=== PATIENT | female | born 1965 | race Caucasian/White ===

== ENCOUNTER 2017-06-03 00:15 | Emergency (ER) | payer OTHER, MEDICAID ==
[~2017-06-03] VITALS: Ht 170.2 cm; Wt 190.5 kg
[~2017-06-03 00:15] MED LIST: ACTEMRA162 MG/0.9 SQ; ALBUTEROL SULFAT4 MG PO; ALLOPURINOL 30300 M1 PO; AMBIEN 10 MG TA10 MG PO; AMILORIDE HCL-1 EACH; B-100 COMPLEX1 EAC1; B-122500 MC1 SL; CEFAZOLIN2 GM/100 M IV; CIMZIA PO; CINNAMON500 MG PO; COZAAR 25 MG TA25 M1 PO; COZAAR 25 MG TA25 MG; CRANBERRY TABL1 EACH PO; CRANBERRY500 MG PO; CRUTCH1 EACH MC; CYCLOBENZAPRINE10 MG; CYMBALTA30 MG PO; CYMBALTA60 MG PO; DESYREL100 MG; DHEA50 MG PO; DILTIAZEM ER120 M1 PO; DUONEB 2.5-0.5 M3 ML INH; ESTRACE0.5 MG PO; ESTRADIOL 1 MG T1 M1 PO; EVOXAC30 MG; FLONASE 0.05%50 MCG NASAL; FOLIC ACID 40400 MCG PO; FOLIC ACID1 MG PO; FUROSEMIDE 40 M40 M1 PO; GABAPENTIN PO; GLUCOPHAGE1000 MG PO; HUMALOG100 UNIT/1; HUMARA; HUMIRA40 MG/0.8 INJECTION; HUMULIN N100 UNIT/1 SC; HUMULIN N100 UNIT/1 SUBQ; HYDROCODON-ACE1 EAC5 PO; HYDROXYCHLOROQ200 M1 PO; INSULIN SYRING MC; IRON325 PO; JARDIANCE10 MG PO; K-DUR 20 MEQ T20 MEQ PO; K-DUR10 MEQ PO; LEVOTHYROXINE 0.1 MG PO; LEVOTHYROXINE0.05 MG; LEVOXYL88 MCG PO; LIDODERM 5%1 PATC1 TOP; Levothyroxine PO; MEDROLDOSEPACK PO; METHOTREXATE 22.5 M1 PO; MILK THISTLE; MOVANTIK25 MG PO; NABUMETONE 750750 M1 PO; NEURONTIN 300300 M1; NEURONTIN 300300 M1 PO; NITROSTAT0.4 MG SL; OMEPRAZOLE20 M2 PO; ONDANSETRON HCL4 M2 PO; ONE-A-DAY WOMENS PO; OXYCODONE HCL5 MG PO; PERCOCET 10-321 EACH PO; PILOCARPINE HC7.5 MG PO; POTASSIUM CHLO10 ME1; POTASSIUM CHLO10 ME1 PO; POTASSIUM CITR10 ME1 PO; POTASSIUM CITRATE PO; POTASSIUM20 PO; PREDNISONE 20 M20 MG PO; PREDNISONE 5 MG5 M1 PO; PROAIR HFA8.5 GM; PROAIR HFA8.5 GM INH; PROVERA2.5 MG PO; Potassium Citrate PO; REGLAN 10 MG TA10 MG PO; SILVADENE20 GM; SPIRONOLACTONE; SSD CREAM 1% 5050 GM TOP; TIZANIDINE HCL4 MG PO; TOPAMAX 25 MG T25 M1 PO; TRAZODONE; TRAZODONE HCL100 MG PO; Trazodone PO; UNICOMPLEX M TA1 TA1 PO; VANCO 1.251.25 GM/25 IVPB; VICODIN; VICTOZA0.6 MG/0.1 PO; VICTOZA0.6 MG/0.1 SUBQ; VITAMIN B-12500 MCG PO; VITAMIN D; VITAMIN D1000 UNI1 PO; VITAMIN D2000 UNIT PO; VITAMINC500 PO
[2017-06-03 00:23] VITALS: BP 125/72
[2017-06-03 05:32] LABS: ABSOLUTE BASOPHILS 0.1 thou/uL (0.0-0.2); ABSOLUTE EOSINOPHILS 0.1 thou/uL (0.0-0.7); ABSOLUTE LYMPHOCYTES 1.1 thou/uL (0.8-5.3); ABSOLUTE MONOCYTES 0.7 thou/uL (0.0-1.2); ABSOLUTE NEUTROPHILS 8.2 thou/uL (1.6-8.1); BASOPHILS 0.7 %; EOSINOPHILS 0.7 %; HEMATOCRIT 40.4 % (37.0-47.0); HEMOGLOBIN 13.1 gm/dL (12.0-15.0); LYMPHOCYTES 10.8 %; MCH 29.7 pg (26.0-34.0); MCHC 32.5 g/dL (28.0-37.0); MCV 91.4 fL (80.0-100.0); MPV 7.2 fl. (7.2-11.1); NUCLEATED RBCS 0 /100WBC; PLATELET COUNT* 259 thou/uL (150-400); POLYS 80.8 %; RBC 4.42 mil/uL (4.20-5.00); RDW-CV 16.9 % (10.5-14.5); WBC 10.2 thou/uL (4.0-11.0)
[2017-06-03 05:47] LABS: ANION GAP 104 mmol/L (7-16); BUN 19 mg/dL (7-18); CO2 33 mmol/L (21-32); CREATININE 1.3 mg/dL (0.6-1.3); SODIUM 141 mmol/L (136-145)
[2017-06-03 05:48] LABS: ALBUMIN 3.4 g/dL (3.4-5.0); ALKALINE PHOSPHATASE 64 U/L (46-116); CALCIUM 9.7 mg/dL (8.5-10.1); GLUCOSE 291 mg/dL (70-99); NT-PRO BRAIN NAT PEPTIDE 68 pg/mL (<300); SGOT 24 U/L (15-37); SGPT 32 U/L (30-65); TOTAL BILIRUBIN 7.8 mg/dL (<0.1-1.0); TOTAL PROTEIN 7.8 g/dL (6.4-8.2); TROPONIN-I LEVEL <0.06 ng/mL (<0.06)
[2017-06-03 05:58] LABS: URINE COLOR YELLOW
[2017-06-03 05:59] LABS: URINE CLARITY CLEAR; URINE GLUCOSE-RANDOM TRACE (Negative); URINE KETONES NEGATIVE (Negative); URINE PROTEIN NEGATIVE (Negative)
[2017-06-03 06:00] LABS: URINE BILIRUBIN NEGATIVE (Negative); URINE BLOOD NEGATIVE (Negative); URINE LEUKOCYTES-REFLEX NEGATIVE (Negative); URINE NITRITE-REFLEX NEGATIVE (Negative); URINE UROBILINOGEN 0.2 E.U./dl (0.2-1.0)
--- NOTE | 2017-06-03 10:48 | EKG ---
[place] [address] ELECTROCARDIOGRAM REPORT Name: DILIP WALKER Room: [facility]#: [id number] Admission: 06/03/17 Attend Phys: Discharge: Date of : 67 Report #: [id number] THIS REPORT FOR: //name// [facility] ED Test Date: 2017-06-03 Test Time: 00:21:37 Pat Name: DILIP WALKER Department: Room: Gender: F Boatwright: REAL Nelson : 1965 Requested By: Sherrill Calhoun Order Number: [id number] MD: Griffin Caba Measurements Intervals [place] Rate: 112 P: 22 [place]: 190 QRS: 5 QRSD: 83 T: 26 QT: 320 QTc: 437 Interpretive Statements Sinus tachycardia Anterior infarct, old Baseline wander in lead(s) V5 Compared to ECG 07/15/2016 12:43:07 Myocardial infarct finding now present Sinus rhythm no longer present Electronically Signed On 06-03-2017 10:48:39 CDT by Griffin Caba [email or web address] <ELECTRONICALLY SIGNED> By: Griffin Caba MD, [facility] 06/03/17 1048 0021 0021 Griffin Caba MD, FAC /EPI
[2017-10-21] MEDS ORDERED: OMEPRAZOLE40 MG PO (14:37)
[2017-10-21] MEDS ORDERED: ERYTHROMYCIN250 MG PO (14:38)
== END 2017-06-03 04:48 | disposition home or self-care (01) ==
LOC: M.ERS 00:15
PROVIDERS: Emergency Medicine
DX: R42 Dizziness and giddiness (principal); E11.9 Type 2 diabetes mellitus without complications; E03.9 Hypothyroidism, unspecified; I10 Essential (primary) hypertension; J44.9 Chronic obstructive pulmonary disease, unspecified

== ENCOUNTER 2017-06-09 16:31 | Inpatient (IN) | payer OTHER, MEDICAID ==
[~2017-06-09] VITALS: Ht 170.2 cm; Wt 192.5 kg
[2017-06-09 16:39] VITALS: BP 160/65
--- NOTE | 2017-06-09 16:48 | NUR ---
PT GAVE LIST OF MEDS AND HAS MARKED THE MEDS DR. CONNOLLY WOULD LIKE HER TO STOP THEY INCLUDE: CYMBALTA, DILTIAZEMHCL, FURSEMIDE, LOSARTAN POTASSIUM BUT TOOK THIS MORNING
[2017-06-09] MEDS ORDERED: ACTEMRA162 MG/0.9 INJECTION (16:52)
[2017-06-09] MEDS ORDERED: NEURONTIN 300300 M1 PO (16:54)
[2017-06-09] MEDS ORDERED: REGLAN 10 MG TA10 MG PO (16:57)
[2017-06-09] MEDS ORDERED: NOVOLIN N100 UNIT/1 INJECTION (16:58)
[2017-06-09] MEDS ORDERED: VITAMIN D1000 UNI1 PO (16:59)
[2017-06-09] MEDS ORDERED: VICTOZA0.6 MG/0.1 SUBQ (16:59)
[2017-06-09] MEDS ORDERED: NOVOLIN R100 UNIT/1 INJECTION (16:59)
[2017-06-09] MEDS ORDERED: LEVOXYL175 MCG PO (17:01)
[2017-06-09 17:43] LABS: ABSOLUTE EOSINOPHILS 0.1 thou/uL (0.0-0.7); ABSOLUTE LYMPHOCYTES 1.2 thou/uL (0.8-5.3); ABSOLUTE MONOCYTES 0.6 thou/uL (0.0-1.2); ABSOLUTE NEUTROPHILS 9.1 thou/uL (1.6-8.1); BASOPHILS 0.4 %; EOSINOPHILS 0.9 %; HEMATOCRIT 40.6 % (37.0-47.0); HEMOGLOBIN 13.2 gm/dL (12.0-15.0); LYMPHOCYTES 10.7 %; MCH 29.6 pg (26.0-34.0); MCHC 32.5 g/dL (28.0-37.0); MCV 90.8 fL (80.0-100.0); MONOCYTES 5.3 %; MPV 7.4 fl. (7.2-11.1); NUCLEATED RBCS 0 /100WBC; PLATELET COUNT* 243 thou/uL (150-400); POLYS 82.7 %; RBC 4.47 mil/uL (4.20-5.00); RDW-CV 16.1 % (10.5-14.5); URINE BILIRUBIN NEGATIVE (Negative); URINE BLOOD NEGATIVE (Negative); URINE CLARITY CLEAR; URINE COLOR YELLOW; URINE GLUCOSE-RANDOM NEGATIVE (Negative); URINE KETONES NEGATIVE (Negative); URINE LEUKOCYTES-REFLEX NEGATIVE (Negative); URINE NITRITE-REFLEX NEGATIVE (Negative); URINE PROTEIN NEGATIVE (Negative); URINE SPECIFIC GRAVITY 1.015 (1.005-1.030); URINE UROBILINOGEN 0.2 E.U./dl (0.2-1.0)
[2017-06-09 17:45] LABS: CALCIUM 9.6 mg/dL (8.5-10.1); CREATININE 1.5 mg/dL (0.6-1.3); POTASSIUM 3.3 mmol/L (3.5-5.1)
[2017-06-09 17:50] LABS: ALBUMIN 3.5 g/dL (3.4-5.0); TOTAL BILIRUBIN 0.5 mg/dL (<0.1-1.0)
[2017-06-09 18:06] LABS: BE 1.7 mmol/L (-2 to +3); HCO3 25.1 mmol/L (22.0-26.0); PCO2 35.9 mmHg (35.0-45.0); PO2 76.9 mmHg (75.0-100.0); pH 7.463 (7.340-7.450)
[2017-06-09 20:00] VITALS: BP 113/42
[2017-06-09 20:30] VITALS: BP 113/42; BP 125/77
[2017-06-09] MEDS ORDERED: METHOTREXATE 22.5 MG PO (21:13)
[2017-06-09 23:00] VITALS: BP 113/55
[2017-06-09 23:03] VITALS: BP 130/85
[2017-06-09 23:06] VITALS: BP 125/89
[2017-06-10 03:15] VITALS: BP 139/77
--- NOTE | 2017-06-10 04:51 | NUR ---
RECEIVED REPORT FROM BALDO CHAVEZ AT 2019. PT ARRIVED TO UNIT AT 2130. PT PLACED ON TELE MONITOR, TRACING SINUS TACHY/SINUS RHYTHM 90'S -100'S THIS SHIFT. PT C/O FEELING DIZZY AND LIGHT HEADED WHEN CHANGING POSITIONS FROM LAYING SUPINE TO SITTING AND SITTING TO STANDING. FALL PRECAUTIONS IN PLACE. HOURLY ROUNDING COMPLETED. PER PATIENT, DR. CONNOLLY INDICATED PATIENT DO NOT TAKE CYMBALTA, DILTIAZEM, LASIX, AND LOSARTAN. NEUROLOGY CONSULT IN AM. CALL LIGHT WITHIN REACH.
[2017-06-10 08:00] VITALS: BP 108/59
[2017-06-10 12:00] VITALS: BP 94/52
--- NOTE | 2017-06-10 12:01 | NUR ---
MET WITH PT TO DISCUSS HOME SITUATION/DC PLANNING. PT KNOWN TO CM FROM PREVIOUS HOSPITAL STAYS. PT LIVES WITH SPOUSE WHO HAS M.S. PT USES MOTORIZED W/C, WALKER, SHOWER BENCH AND CPAP. SHE HAS HAD HH WITH [facility] AND DONE IV ANTIBX AT HOME THRU [facility] IN PAST. PT STATES SHE HAS HAD PROBLEMS WITH DIZZINESS AND FALLS FOR ABOUT A MONTH. SHE FOLLOWS WITH DR KATHY YANCEY IN [place]. PT PL[place] TO RETURN [place] AT [place]. UNSURE IF SHE WILL NEED HH. CM TO FOLLOW
--- NOTE | 2017-06-10 13:47 | 2DMMODE ---
[place] [address] 2 D/M-MODE ECHOCARDIOGRAM Name: DILIP WALKER Room: [address] IN [facility]#: [id number] Admission: 06/09/17 Attend Phys: Chaka Landry, Discharge: Date of : 67 Date of Service: 06/10/17 1347 Report #: [id number] THIS REPORT FOR: //name// APPROVED REPORT Study performed: 06/10/2017 10:35:59 EXAM: Comprehensive 2D, Doppler, and color-flow Echocardiogram Patient Location: In-Patient Room #: [facility] Status: routine BSA: 2.79 HR: 91 bpm BP: 108/59 mmHg Rhythm: NSR Other Information Technically limited study due to body habitus. Indications Arrhythmia Echo Enhancing Agent Indication: Endocardial border delineation Agent(s) / Amount(s) Used: Optison 3 cc 2D Dimensions LVEF(%): 61.99 (>50%) IVSd: 11.76 (7-11mm) LVOT Diam: 23.20 (18-24mm) LVDd: 52.60 mm PWd: 12.62 (7-11mm) Ascending Ao: 32.77 (22-36mm) LVDs: 34.91 (25-40mm) Aortic Root: 35.25 mm Parkinson's LVEF: 61.99 % Volumes Left Atrial Volume (Systole) LA ESV Index: 20.90 mL/m2 Aortic Valve AoV Peak Tirso.: 1.59 m/s AO Peak Gr.: 10.10 mmHg LVOT Max P.76 mmHg AO Mean Gr.: 5.28 mmHg LVOT Mean P.08 mmHg LVOT Max V: 1.30 m/[place] [address] 2 D/M-MODE ECHOCARDIOGRAM Name: DILIP WALKER Room: [address] IN .R.#: [id number] Admission: 06/09/17 Attend Phys: Chaka Landry, Discharge: Date of : 67 Date of Service: 06/10/17 1347 Report #: [id number] AO V2 VTI: 24.39 cm LVOT Mean V: 0.79 m/s NILTON (VTI): 3.91 cm2 LVOT V1 VTI: 22.59 cm Mitral Valve E/A Ratio: 1.14 MV Decel. Time: 207.75 ms MV E Max Tirso.: 0.82 m/s MV PHT: 60.25 ms MVA (PHT): 3.65 cm2 TDI E/Lateral E': 6.83 E/Medial E': 6.83 Medial E' Tirso.: 0.12 m/s Lateral E' Tirso.: 0.12 m/s Pulmonary Valve PV Peak Tirso.: 1.20 m/s PV Peak Gr.: 5.80 mmHg Left Ventricle The left ventricle is normal size. There is normal LV segmental wall motion. There is normal left ventricular wall thickness. Left ventricular systolic function is normal. The left ventricular ejection fraction is within the normal range. LVEF is 60%. The left ventricular diastolic function is normal. Right Ventricle The right ventricle is normal size. The right ventricular systolic function is normal. Atria The left atrium size is normal. The right atrium size is normal. Aortic Valve The aortic valve is normal in structure. No aortic regurgitation is present. There is no aortic valvular stenosis. Mitral Valve The mitral valve is normal in structure. Trace mitral regurgitation. No evidence of mitral valve stenosis. Tricuspid Valve The tricuspid valve is normal in structure. Unable to assess PA pressure. Trace tricuspid regurgitation[place] [address] 2 D/M-MODE ECHOCARDIOGRAM Name: DILIP WALKER Room: [address] IN [facility]#: [id number] Admission: 06/09/17 Attend Phys: Chaka Landry, Discharge: Date of : 67 Date of Service: 06/10/17 1347 Report #: [id number] The pulmonary valve is normal in structure. There is no pulmonic valvular regurgitation. Great Vessels The aortic root is normal in size. IVC is normal in size and collapses with >50% inspiration Pericardium There is no pericardial effusion. <Conclusion> The left ventricle is normal size. There is normal left ventricular wall thickness. Left ventricular systolic function is normal. The left ventricular ejection fraction is within the normal range. LVEF is 60%. The left ventricular diastolic function is normal. The right ventricle is normal size. The left atrium size is normal. The aortic valve is normal in structure. The mitral valve is normal in structure. The tricuspid valve is normal in structure. IVC is normal in size and collapses with >50% inspiration There is no pericardial effusion. There is normal LV segmental wall motion. <ELECTRONICALLY SIGNED> By: Emiliano Alejandra MD, FACC 06/10/17 1347 46 46 Emiliano Alejandra MD, FACC /INF
--- NOTE | 2017-06-10 14:16 | NUR ---
Nutrition: Pt seen for BMI >40. Pt refused education/nutrition info. She stated she has been on a "diabetic diet" since she was 11 and she doesn't need any info. She is on insulin. She stated her average BG is 149. Today, 166 BG, alb 3.5. Eating CHO controlled diet. No nutrition interventions needed at this time. Mild risk.
[2017-06-10 14:18] VITALS: BP 94/52
--- NOTE | 2017-06-10 15:13 | EKG ---
[place] [address] ELECTROCARDIOGRAM REPORT Name: DILIP WALKER Room: [address] ADM IN M.R.#: [id number] Admission: 06/09/17 Attend Phys: Chaka Landry MD Discharge: Date of : 67 Report #: [id number] THIS REPORT FOR: //name// [facility] ED Test Date: 2017-06-09 Test Time: 16:44:48 Pat Name: DILIP WALKER Department: Room: [facility] Gender: F [employer] Fabricator: UNKNOWN : 1965 Requested By: Audrey Domingo Order Number: [id number] MD: Phillip Conroy Measurements Intervals [place] Rate: 108 P: 41 ME: 168 QRS: -14 QRSD: 102 T: 56 QT: 342 QTc: 459 Interpretive Statements Sinus tachycardia Atrial premature complex Delayed R-wave progression Compared to ECG 06/03/2017 00:21:37 Atrial premature complex(es) now present Electronically Signed On 06-10-2017 15:13:31 CDT by Phillip Conroy [email or web address] <ELECTRONICALLY SIGNED> By: Phillip Conroy MD, FACC 06/10/17 1513 1644 1644 Phillip Conroy MD, FAC /EPI
--- NOTE | 2017-06-10 16:22 | NUR ---
ASSUMED CARE OF PATIENT THIS AM AT 0730. PATIENT IS ALERT AND ORIENTED X 4. SHE C/O INTERMITTENT GENERALIZED PAIN TODAY. SHE SAID THAT HER PAIN NEVER GOES ALL THE WAY AWAY. PATIENT IS UP TO THE CHAIR AND TO THE BSC WITH STANDBY ASSIST. PATIENT C/O CONTINUED DIZZINESS. ORTHOSTATICS MONITORED. NO DROP IN BP NOTED, BUT PATIENT'S HR INCREASES WITH SITTING AND STANDING. TELE SHOWS SR TO ST. PATIENT WAS AGITATED THIS AFTERNOON ABOUT HER SALINE LOCK. PATIENT DEMANDED THE IV BE REMOVED AND REFUSES TO HAVE IT RESTARTED AT THIS TIME. PATIENT INSTRUCTED ON THE DANGERS OF NOT HAVING A IV ACCESS. PATIENT IS TAKING HER DIET WELL. NO C/O NAUSEA. ECHO COMPLETED AT THE BEDSIDE. PATIENT TAKEN TO RADIOLOGY PER W/C FOR A MRI. WILL CONTINUE TO MONITOR PATIENT COMFORT AND SAFETY.
[2017-06-10 17:06] VITALS: BP 101/57
[2017-06-10 20:00] VITALS: BP 107/54
[2017-06-11] VITALS (8 sets, daily range): BP systolic 100–158; BP diastolic 45–98
--- NOTE | 2017-06-11 04:18 | NUR ---
Patient rested in bed. No acute changes. Patient did not show sings of distress. Patient hr showed sinus 70's-80's. Fall precautions in places, hourly rounding observered, call light within reach. Patient refused IV, patient is npo after midnight for cardiology consult.
--- NOTE | 2017-06-11 09:08 | NUR ---
ASSUMED CARE OF PT AROUND 0730 THIS AM. REFER TO ASSESSMENT. PT REPORTS THAT SHE IS NOT DIZZY THIS MORNING, BUT IT USUALLY HAPPENS WHEN SHE GETS UP OOB AND MOVING AROUND. NO OTHER CONCERNS AT THIS TIME. CLWR. WCTM.
--- NOTE | 2017-06-11 16:17 | NUR ---
PT SOMEWHAT PROGRESSING TOWARDS GOALS. VSS THIS SHIFT. PT C/O DIZZINESS WHEN MOVING AROUND THIS SHIFT. CONTINUES WITH NO IV. CARDIOLOGY CONSULTED, UNABLE TO DO STRESS TEST, AND STATES UNABLE TO CONSENT FOR PT TO HAVE EGD BY GI AT THIS TIME D/T INABILITY TO PERFORM CARDIAC TESTS. PT TOLERATING DIET. TELE SR. NO OTHER CONCERNS AT THIS TIME. CLWR. WCTM.
--- NOTE | 2017-06-11 17:44 | NUR ---
PT WAS 97% WITH 65 HR ON ROOM AIR
--- NOTE | 2017-06-11 18:22 | NUR ---
ORTHOSTATS POSITIVE THIS SHIFT
[2017-06-12 00:05] VITALS: BP 136/80
[2017-06-12 04:06] VITALS: BP 112/58
--- NOTE | 2017-06-12 04:12 | NUR ---
ASSUMED PT CARE AT 1930. NURSING ASSESSMENT COMPLETED AT START OF SHIFT. PT VOICED NO CONCERNS. DENIES PAIN. 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
[2017-06-12 08:00] VITALS: BP 114/56
--- NOTE | 2017-06-12 10:05 | NUR ---
ASSUMED PT CARE AT 0730, FULL ASSESMENT DONE CHARTED. PT A/O X4, UP TO CHAIR FOR BREAKFAST, DENIES PAIN, DENIES DIZZYNESS. VSS, SR ON THE MONITOR. PT WANTS TO KNOW IF CARDIOLOGY WILL CLEAR HER FOR EGD. DR CRUZ SPOKE TO PT, WANTS HER TO HAVE STRESS TEST OUT PT AT [facility] PRIOR TO EGD. PT CAN DC HOME TODAY. PT USES CALL LIGHT APPROPRIALTY. FALL PRECATUIONS IN PLACE. WILL CONTINUE WITH PLAN OF CARE.
[2017-06-12 11:21] VITALS: BP 94/52
--- NOTE | 2017-06-12 19:10 | CON ---
[address] [address] CONSULTATION Name: AARONDILIP Room: [address] IN M.R.#: [id number] Admission: 06/09/17 Attend Phys: Chaka Landry MD Discharge: 06/12/17 Date of : 67 Report #: [id number] THIS REPORT FOR: //name// CC: Chaka Young DATE OF SERVICE: 06/10/2017 HISTORY OF PRESENT ILLNESS: This is a 51-year-old female patient who was evaluated by me because of dizziness. Neurological consultation was requested to evaluate the patient for any neurological etiology for the patient's dizziness. The patient indicates that typically her dizziness occurred when she stands up. She is having a postural hypotension. Her blood pressure has been low. They have discontinued multiple medications and she is not certain if she is feeling any better. She passes out, but does not have any associated tonic-clonic activity. It started spontaneously without any trauma. REVIEW OF SYSTEMS: Indicates multiple falls. This is probably because of hypotension. She has a diabetic neuropathy. She has chronic pain in both knees. She has a history of orthostatic hypotension. She has a history of gastroparesis, morbid obesity. 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 She has a history of sleep apnea. She wears a CPAP. She has chronic kidney disease. She is not having any eye, ENT symptoms. She does have a history of hypothyroidism. She is on multiple medications including gabapentin and topiramate. A lot of them have been discontinued for the time being. I carried out the 14-point review of systems and rest of the 14-point review of system was noncontributory. She is not complaining of any new musculoskeletal, constitutional, dermatological, hematological, throat, allergic symptoms. She is a diabetic. PAST MEDICAL HISTORY: Negative for any stroke. FAMILY HISTORY: Negative for any early age stroke. SOCIAL HISTORY: She does not smoke or drink any alcohol. PHYSICAL EXAMINATION: Indicate that this patient is alert, responsive. Her speech, concentration, fund of knowledge and memory is at her baseline. Cranial nerve examination 2-12 looks unremarkable. I could not look at the patient's fundus. She does appear to be weak in all 4 extremities, but I suspect that may be her baseline. She had amputations on the right toes. She does have decreased pinprick in the legs. Her reflexes are absent in the lower extremities. Tone looks unremarkable on both sides. She has no meningeal sign. There is no cerebellar sign. She is morbidly obese individual who does not [place] [address] CONSULTATION Name: DILIP WALKER Room: [address] IN M.R.#: [id number] Admission: 06/09/17 Attend Phys: Chaka Landry MD Discharge: 06/12/17 Date of : 67 Report #: [id number] eyes, ears and face. She is reasonably well-developed. Her pulses are difficult to feel in the lower extremities. She has no edema, cyanosis or jaundice. Cardiac examinations appear noncontributory. No respiratory difficulty or rhonchi was noticed. Blood pressure was 94/52, respirations 18, pulse is 86, temperature is 98.3. LABORATORY DATA: She did have a carotid Doppler done, which showed no significant stenosis. She had a head CT scan, which was mostly unremarkable. Her white count was 11.0, her blood sugar was 213. IMPRESSION: I do not believe that there is any neurological etiology for the patient's dizziness. I believe dizziness may be because of some postural hypotension or any non-neurological etiology. Because of multiple vascular risk factors, I will go ahead and do an MRI in this patient to make sure there is no etiology there. If that is also unremarkable, I will suggest waiting and see how she does with correction of her postural hypotension and then decide about further management after that. Thank you very much for this referral and we will follow this patient along with you. <ELECTRONICALLY SIGNED> By: Tanner Guzman MD 06/12/171909 1528 19Tanner Guzman MD /nt
--- NOTE | 2017-06-19 15:14 | CON ---
[address] [address] CONSULTATION Name: DILIP WALKER Room: [address] IN M.R.#: [id number] Admission: 06/09/17 Attend Phys: Chaka Landry MD Discharge: 06/12/17 Date of : 67 Report #: [id number] THIS REPORT FOR: //name// CC: Chaka Young DATE OF SERVICE: 06/11/2017 ADDENDUM REFERRING PHYSICIAN: Dr. Chaka Landry. PRIMARY CARE PHYSICIAN: Dr. Jen Young. I have seen and examined the patient and I agree with the plans that have been outlined by our nurse practitioner, Krys Mazariegos. Because of the patient issues with hypotension, chest discomfort and chest pain, we need to await the results of her cardiovascular evaluation before proceeding with any endoscopic studies. We will await for Cardiology to okay her to undergo upper endoscopy and I agree that she will need to have this done as an inpatient as it will not be able to be done in an [facility] secondary to her BMI. With regards to her constipation, and I agree that we could try on some Relistor and see how things go with regards to the same. We will await Cardiology's okay to proceed with the same. <ELECTRONICALLY SIGNED> By: Paul Catalan DO 06/19/17 1514 0849 1344Paul Catalan DO /shavon
--- NOTE | 2017-06-19 15:14 | CON ---
[facility] [address] [place] [address] CONSULTATION Name: AARONDILIP PALACIOS Room: [address] IN M.R.#: [id number] Admission: 06/09/17 Attend Phys: Chaka Landry MD Discharge: 06/12/17 Date of : 67 Report #: [id number] THIS REPORT FOR: //name// CC: Chaka Young MD DICTATED BY: Krys Mazariegos [facility] DATE OF SERVICE: 06/11/2017 PRIMARY CARE PHYSICIAN: Jen Young M.D. Please note at the time of this dictation, the patient was seen and physically examined by myself. REASON FOR CONSULTATION: Dysphagia. 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 The patient had been having intermittent episodes of dizziness for the past month and it was worsening on the day that she was seen by Cardiology. She was noted to be hypotensive and had dizziness occurring with position changes from sitting to standing. She is waiting to have a stress test done today. Neurology has seen her and workup is negative and does not feel that this is necessary. The patient is needing an EGD for her dysphagia, which she states she has been having ongoing since March. She states this about 3 times a week, but it is getting increasing in frequency as well as mainly with breads and meats. She has not noticed with liquids, however, sometimes with pills. The patient had an EGD back in 2008 along with a colonoscopy for her iron-deficiency anemia. At that time, everything was normal and she was noted to have a small hiatal hernia. The patient does take chronic opioids for her rheumatoid arthritis and has issues with chronic constipation, which if she has not gone every other day, she loads up on laxatives to allow her to go. She has not tried anything else. She states many years ago, she was tried on a medication for opioid-induced constipation and her insurance would not pay for it, but she does not recall what that was for. ALLERGIES: TAPE and BEE STINGS. MEDICATIONS: From home include Relafen, ProAir, Topamax, tizanidine, Plaquenil, Neurontin, oxycodone, DHEA, Flonase, DuoNeb, cranberry, cinnamon, iron, milk thistle, multivitamin with iron, vitamin B12, vitamin C, vitamin D, folic acid, tocilizumab injection, Neurontin, insulin, Victoza, levothyroxine, omeprazole, Cymbalta, diltiazem, Cozaar, Zofran, allopurinol, albuterol sulfate, metformin, [place] [address] CONSULTATION Name: DILIP WALKER Room: [address] IN .RLorenzo#: [id number] Admission: 06/09/17 Attend Phys: Chaka Landry MD Discharge: 06/12/17 Date of : 67 Report #: [id number] Lasix, prednisone, Estrace and trazodone. PAST MEDICAL HISTORY: Chronic knee pain; morbid obesity; sleep apnea; asthma, wear CPAP; hypothyroid; insulin-dependent diabetic; depression; cardiac arrhythmias; hypertension and COPD. PAST SURGICAL HISTORY: She had amputation of her great toe on her right foot. FAMILY HISTORY: Noncontributory. SOCIAL HISTORY: Denies any alcohol, tobacco or illegal drug use. REVIEW OF SYSTEMS: Twelve-point review of systems is essentially negative except what is mentioned in the HPI. PHYSICAL EXAMINATION: VITAL SIGNS: Temperature 37, pulse 77, respirations 18 and blood pressure 100/53. HEART: Regular rate and rhythm. LUNGS: Clear. ABDOMEN: Soft. Positive bowel sounds in all 4 quadrants with no masses or tenderness noted; however, abdomen is morbidly obese with a large pannus noted. LABORATORY DATA: Hemoglobin is 13.2, hematocrit 40.6, white count is 11 and platelets 243. Sodium 138, potassium 3.9, chloride 97, CO2 is 30, BUN is 19, creatinine 1.5, GFR is 37 and glucose is 213. IMPRESSION: 1. Dysphagia. 2. Body mass index greater than 50. 3. Chronic constipation secondary to opioid use for rheumatoid arthritis. PLAN: 1. The patient will need an EGD as an inpatient prior to discharge due to her dysphagia, but we will need to await Cardiology approval and okay. 2. We will do a trial of Relistor 12 mg subcutaneously daily to see if this helps with her bowels. We will also ask case management to check on affordability of this medication. Thank you for allowing us to participate in this patient's care. Please do not hesitate to call with any questions in regard to this consult. <ELECTRONICALLY SIGNED> By: Paul Ctaalan DO 06/19/17 1514 1152 1434Paul Catalan DO /nt
[2017-10-21] MEDS ORDERED: OMEPRAZOLE40 MG PO (14:37)
[2017-10-21] MEDS ORDERED: ERYTHROMYCIN250 MG PO (14:38)
== END 2017-06-12 12:17 | disposition home or self-care (01) | DRG 74 ==
LOC: M.ERS 16:31 → M.TBA-ER 17:53 → M.2W 17:53
PROVIDERS: Personal Emergency Response Attendant; ADMIT Internal Medicine
DX: E11.43 Type 2 diabetes mellitus with diabetic autonomic (poly)neuropathy (principal); I42.9 Cardiomyopathy, unspecified; Z68.44 Body mass index [BMI] 60.0-69.9, adult; I95.1 Orthostatic hypotension; K31.84 Gastroparesis; G90.9 Disorder of the autonomic nervous system, unspecified; E66.01 Morbid (severe) obesity due to excess calories; M25.569 Pain in unspecified knee; G89.29 Other chronic pain; J45.909 Unspecified asthma, uncomplicated; E11.22 Type 2 diabetes mellitus with diabetic chronic kidney disease; I12.9 Hypertensive chronic kidney disease with stage 1 through stage 4 chronic kidney disease, or unspecified chronic kidney disease; E03.9 Hypothyroidism, unspecified; J44.9 Chronic obstructive pulmonary disease, unspecified; F32.9 Major depressive disorder, single episode, unspecified; R13.10 Dysphagia, unspecified; K59.09 Other constipation; E78.5 Hyperlipidemia, unspecified; M06.9 Rheumatoid arthritis, unspecified; N18.3 Chronic kidney disease, stage 3 (moderate); G47.33 Obstructive sleep apnea (adult) (pediatric); F11.90 Opioid use, unspecified, uncomplicated; Z79.899 Other long term (current) drug therapy; Z79.4 Long term (current) use of insulin; Z89.411 Acquired absence of right great toe; Z88.8 Allergy status to other drugs, medicaments and biological substances

== ENCOUNTER → 2017-06-19 | Outpatient (CLI) | payer OTHER, MEDICAID ==
[~2017-06-19] MED LIST changes: +ACTEMRA162 MG/0.9 INJECTION; +ERYTHROMYCIN250 MG PO; +LEVOXYL175 MCG PO; +METHOTREXATE 22.5 MG PO; +NOVOLIN N100 UNIT/1 INJECTION; +NOVOLIN R100 UNIT/1 INJECTION; +OMEPRAZOLE40 MG PO; +ZANAFLEX4 MG PO
== END ==
LOC: M.RAD 11:02
DX: Z12.31 Encounter for screening mammogram for malignant neoplasm of breast (principal)

== ENCOUNTER → 2017-07-28 | Outpatient (CLI) | payer OTHER, MEDICAID ==
[~2017-07-28] VITALS: Ht 170.2 cm; Wt 190.5 kg
[2017-07-28 09:25] LABS: HEMATOCRIT 43.1 % (37.0-47.0); HEMOGLOBIN 14.2 gm/dL (12.0-15.0); MCH 29.7 pg (26.0-34.0); MCHC 32.9 g/dL (28.0-37.0); MCV 90.3 fL (80.0-100.0); MPV 7.2 fl. (7.2-11.1); RBC 4.78 mil/uL (4.20-5.00); RDW-CV 16.2 % (10.5-14.5); WBC 8.5 thou/uL (4.0-11.0)
[2017-07-28 09:31] VITALS: BP 115/77
[2017-07-28 09:35] LABS: ANION GAP 10 mmol/L (7-16); BUN 13 mg/dL (7-18); CALCIUM 9.5 mg/dL (8.5-10.1); CHLORIDE 99 mmol/L (98-107); CO2 28 mmol/L (21-32); CREATININE 1.2 mg/dL (0.6-1.3); GLUCOSE 181 mg/dL (70-99); POTASSIUM 3.3 mmol/L (3.5-5.1); SODIUM 137 mmol/L (136-145)
[2017-07-28 09:37] LABS: APTT 26.7 Seconds (25.0-31.3); INR 1.1; PROTIME 10.4 Seconds (9.20-11.50)
[2017-07-28 09:39] LABS: ALBUMIN 3.6 g/dL (3.4-5.0); ALKALINE PHOSPHATASE 51 U/L (46-116); CHOLESTEROL 183 mg/dL (<200); HDL CHOLESTEROL 58 mg/dL (>40); LDL CHOLESTEROL 105 mg/dL (<100); SGOT 21 U/L (15-37); SGPT 29 U/L (30-65); TC:HDL 3.2 Ratio (Not establshd); TOTAL BILIRUBIN 0.6 mg/dL (<0.1-1.0); TOTAL PROTEIN 8.1 g/dL (6.4-8.2); TRIGLYCERIDE 101 mg/dL (<150); VLDL 20 mg/dL (<40)
[2017-07-28 09:40] LABS: SERUM ASSESSMENT Clear
--- NOTE | 2017-07-28 10:24 | EKG ---
[place] [address] ELECTROCARDIOGRAM REPORT Name: AARONDILIP SUZANNE Room: [facility]#: [id number] Admission: 07/28/17 Attend Phys: Ronda Greene MD, Discharge: Date of : 67 Report #: [id number] THIS REPORT FOR: //name// [facility] Test Date: 2017-07-28 Test Time: 09:12:33 Pat Name: DILIP WALKER Department: Room: Gender: F Rn Cardiac Cath: LEO : 1965 Requested By: Griffin Caba Order Number: [id number] MD: Griffin Caba Measurements Intervals [place] Rate: 86 P: 27 [place]: 178 QRS: -20 QRSD: 100 T: 43 QT: 383 QTc: 458 Interpretive Statements Sinus rhythm ventricular premature complexe Borderline left axis deviation Consider anterior infarct Baseline wander in lead(s) V2 Compared to ECG 06/09/2017 16:44:48 Ventricular premature complex(es) now present Sinus tachycardia no longer present Atrial premature complex(es) no longer present Electronically Signed On 07-28-2017 10:23:50 CDT by Griffin Caba [email or web address] <ELECTRONICALLY SIGNED> By: Griffin Caba MD, [facility] 07/28/17 1023 1 1 Griffin Caba MD, [facility] /EPI
--- NOTE | 2017-07-28 19:12 | CARD ---
[address] [address] CARDIAC CATH REPORT Name: DILIP WALKER [id number] Admission: 07/28/17 Attend Phys: Ronda Greene MD, Discharge: Date of : 67 Report #: [id number] THIS REPORT FOR: //name// APPROVED REPORT Study performed: 07/28/2017 09:55:01 Patient Details Patient Status: Out-Patient Room #: The patient is a 52 year-old female Event Personnel Griffin Caba Steeler, Lesa Tavarez RTR Monitor, Chaka Montana Hintermaier, Elena RN user experience analyst Performed Art Access - R radial artery Left Heart Cath w/LT ram [id number] LHCLV Hemostasis with Hemoband Indication Positive stress test Risk Factors Obesity, Diabetes Admission/Lab Medications/Medications given during procedure Heparin Unfract. Procedure Narrative The patient was brought electively to the Cardiac Catheterization Laboratory and was prepped and draped in a sterile manner. The right wrist was infiltrated with 1% Lidocaine subcutaneous anesthesia. A Slender Glidesheath sheath was inserted into the right radial artery. Coronary angiography was performed using coronary diagnostic catheters. The right coronary system was accessed and visualized with a 6FR JR4 catheter. The left coronary system was accessed and visualized with a 6FR JL4 catheter. The left ventricle was accessed and visualized with a 6FR Pigtail catheter. Left ventricular/Aortic Valve gradient assessed via catheter pullback. Left ventriculogram was performed in RM projection. Closure device was deployed with a 6 Fr vascband. The patient tolerated the procedure well and there were no complications associated with the procedure. There was no hematoma[place] Intra[place] [address] CARDIAC CATH REPORT Name: DILIP WALKER Room: [facility]#: [id number] Admission: 07/28/17 Attend Phys: Ronda Greene MD, Discharge: Date of : 67 Report #: [id number] Sedation start time: 10:29 Case end Time: 11:00 Dose: 1535.38 mGy Contrast Type and Amount: Visipaque 130 ml Coronary Angiography The patient's coronary anatomy is right dominant. [place] Artery Percent Stenosis Left Main: 0 % Prox LAD: 0 % Mid/Distal LAD: 0 % Circumflex: 0 % RCA: 0 % Ramus: 0 % Left Ventriculography The left ventricle is normal in size with normal contractility. The left ventricular ejection fraction is estimated to be 60-65%. Left ventricular wall motion abnormalities are not present. There is no mitral insufficiency. Hemodynamics The aortic pressure is 100/74 mmHg with a mean of 81 mmHg. The left ventricular pressure is 104/3 mmHg with a mean of mmHg. The left ventricular end diastolic pressure is 10 mmHg. There was no gradient across the aortic valve upon pullback. Pullback from the left ventricle to the aorta revealed no gradient across the aortic valve. Conclusion 1. normal coronary arteries 2. suspect false positive cardiolite stress test Recommendations Aggressive Medical Therapy <ELECTRONICALLY SIGNED> By: Griffin Caba MD, [facility] 07/28/171911 11 Dshimon Caba MD, FAC /INF
--- NOTE | 2017-08-01 17:42 | H ---
[place] [address] HISTORY AND PHYSICAL Name: DILIP WALKER [id number] Admission: 07/28/17 Attend Phys: Ronda Greene MD, Discharge: Date of : 67 Report #: [id number] THIS REPORT FOR: //name// CC: Ronda Young DATE OF SERVICE: 07/28/2017 PRIMARY CARE PHYSICIAN: Dr. Jen Young, [place], [place]. HISTORY OF PRESENT ILLNESS: The patient is a 52-year-old white female who I was asked to see in the hospital today to undergo an outpatient cardiac catheterization. I have never seen the patient before. She has multiple medical problems including morbid obesity as she stands 5 feet 7 inches and previously weighed over 500 pounds. She now apparently is close to 420 pounds. She was turned down for bariatric surgery in the past. She has been followed by my partner, Dr. Greene. She has multiple risk factors for coronary artery disease. She is currently scheduled to undergo an EGD for repeat esophageal dilatation. However, because of risk factor, she saw Dr. Greene who recommended a nuclear stress test. This was performed at [place] on 07/04. Using Lexiscan, there appeared to be a reversible inferior defect consistent with ischemia. Dr. Greene recommended cardiac catheterization. She does complain of shortness of breath. She denies any significant chest pain, although she has difficulty swallowing. She has chronic edema. She does have palpitations. The patient has had a history of orthostatic hypotension. She has fallen, had syncope in the past. She actually went to the Emergency Room here at [place] in May. She was taken off diltiazem. When she saw Dr. Greene in the Cardiology Clinic in May, she was actually admitted and underwent adjustment of her medications. PAST MEDICAL HISTORY: Otherwise significant for amputation of toes. She has diabetes, hypertension and chronic kidney disease. She has had her esophagus dilated in the past. She has sleep apnea, asthma. MEDICATIONS: Consist of the following list, she is on albuterol inhaler, allopurinol, amiloride, estradiol, Lasix, Neurontin, hydroxychloroquine for rheumatoid arthritis, Synthroid, losartan, metformin, methotrexate, insulin, prednisone. ALLERGIES: SHE HAD A PREVIOUS INTOLERANCE TO LISINOPRIL. FAMILY HISTORY: Her father . SOCIAL HISTORY: She is . She and her [place] [address] HISTORY AND PHYSICAL Name: DILIP WALKER Room: [facility]#: [id number] Admission: 07/28/17 Attend Phys: Ronda Greene MD, Discharge: Date of : 67 Report #: [id number] REVIEW OF SYSTEMS: She has had a history of asthma. No liver disease, no cancer. PHYSICAL EXAMINATION: GENERAL: Revealed a morbidly obese, middle-aged female, lying on a stretcher. VITAL SIGNS: She had a blood pressure 130/70, pulse is 80. Mucous membranes moist. NECK: Veins difficult to assess due to obesity. EYES: She is anicteric. CHEST: Clear to auscultation. CARDIOVASCULAR: Regular rate and rhythm. ABDOMEN: Morbidly obese. EXTREMITIES: Had pitting edema. SKIN: Cool and dry. NEUROLOGIC: Nonfocal. LABORATORY DATA: Potassium 3.3, BUN 13, creatinine 1.2. Hemoglobin 14.2. IMPRESSION AND RECOMMENDATIONS: 1. Abnormal nuclear stress test. Recommend cardiac catheterization. 2. Hypertension. The patient is on an ARB. 3. Diabetes. 4. Morbid obesity. The patient was turned down for bariatric surgery. 5. Rheumatoid arthritis. The patient is on methotrexate. 6. Previous esophageal dilatation. I would hold off an additional EGD until after her cardiac catheterization. 7. Sleep apnea. The patient uses CPAP. <ELECTRONICALLY SIGNED> By: Griffin Caba MD, [facility] 08/01/17 1742 1003 1034Dshimon Caba MD, [facility] /nt
== END | disposition home or self-care (01) ==
LOC: M.CL 08:44
PROVIDERS: Internal Medicine Cardiovascular Disease
DX: R94.39 Abnormal result of other cardiovascular function study (principal); I12.9 Hypertensive chronic kidney disease with stage 1 through stage 4 chronic kidney disease, or unspecified chronic kidney disease; N18.9 Chronic kidney disease, unspecified; E11.22 Type 2 diabetes mellitus with diabetic chronic kidney disease; E03.9 Hypothyroidism, unspecified; J44.9 Chronic obstructive pulmonary disease, unspecified; M06.9 Rheumatoid arthritis, unspecified; G47.33 Obstructive sleep apnea (adult) (pediatric); F32.9 Major depressive disorder, single episode, unspecified; Z98.890 Other specified postprocedural states; Z79.899 Other long term (current) drug therapy; Z88.8 Allergy status to other drugs, medicaments and biological substances; E66.01 Morbid (severe) obesity due to excess calories; Z87.19 Personal history of other diseases of the digestive system; Z79.4 Long term (current) use of insulin; Z79.891 Long term (current) use of opiate analgesic

== ENCOUNTER 2017-10-21 15:00 | Emergency (ER) | payer OTHER, MEDICAID ==
[~2017-10-21] VITALS: Ht 170.2 cm; Wt 199.3 kg
[~2017-10-21 15:00] MED LIST changes: -ZANAFLEX4 MG PO
[2017-10-21] MEDS ORDERED: ZANAFLEX4 MG PO (16:17)
[2017-10-21 16:33] VITALS: BP 116/74
== END 2017-10-21 16:33 | disposition home or self-care (01) ==
LOC: M.ERS 15:00
DX: M48.061 Spinal stenosis, lumbar region without neurogenic claudication (principal); J44.9 Chronic obstructive pulmonary disease, unspecified; G89.29 Other chronic pain; M25.569 Pain in unspecified knee; I10 Essential (primary) hypertension; F32.9 Major depressive disorder, single episode, unspecified; E03.9 Hypothyroidism, unspecified; E11.9 Type 2 diabetes mellitus without complications; G47.30 Sleep apnea, unspecified; E66.01 Morbid (severe) obesity due to excess calories; Z68.44 Body mass index [BMI] 60.0-69.9, adult; Z91.030 Bee allergy status; Z88.8 Allergy status to other drugs, medicaments and biological substances

== ENCOUNTER → 2017-10-21 | Day surgery (SDC) | payer OTHER, MEDICAID ==
--- NOTE | ~2017-10-21 | PROC ---
[address] [address] PROCEDURE REPORT Name: DILIP WALKER [facility]: [facility]#: [id number] Admission: 10/21/17 Attend Phys: Lashay Vazquez MD Discharge: Date of : 67 Report #: [id number] THIS REPORT FOR: //name// For GI report, please see the Provation report in Perceptive 7 content. By: 1424Medical Records Staff [address]VE /ANGELI
[2017-10-21 10:16] LABS: HEMATOCRIT 39.6 % (37.0-47.0); HEMOGLOBIN 12.9 gm/dL (12.0-15.0); MCH 29.3 pg (26.0-34.0); MCHC 32.5 g/dL (28.0-37.0); MCV 90.2 fL (80.0-100.0); MPV 6.5 fl. (7.2-11.1); RBC 4.39 mil/uL (4.20-5.00); RDW-CV 16.1 % (10.5-14.5); WBC 6.4 thou/uL (4.0-11.0)
[2017-10-21 10:26] LABS: CALCIUM 9.6 mg/dL (8.5-10.1); CREATININE 1.2 mg/dL (0.6-1.3); POTASSIUM 3.1 mmol/L (3.5-5.1)
== END | disposition home or self-care (01) ==
LOC: M.SUR 09:49
PROVIDERS: Internal Medicine Gastroenterology
DX: K21.0 Gastro-esophageal reflux disease with esophagitis (principal); K44.9 Diaphragmatic hernia without obstruction or gangrene; E11.22 Type 2 diabetes mellitus with diabetic chronic kidney disease; E11.621 Type 2 diabetes mellitus with foot ulcer; N18.2 Chronic kidney disease, stage 2 (mild); E03.9 Hypothyroidism, unspecified; J44.9 Chronic obstructive pulmonary disease, unspecified; G62.9 Polyneuropathy, unspecified; M06.9 Rheumatoid arthritis, unspecified; G89.29 Other chronic pain; E66.09 Other obesity due to excess calories; Z98.890 Other specified postprocedural states; Z79.899 Other long term (current) drug therapy

== ENCOUNTER → 2018-07-15 | Outpatient (CLI) | payer OTHER ==
[~2018-07-15] MED LIST changes: +ZANAFLEX4 MG PO
== END ==
LOC: M.RAD 14:11
DX: M81.0 Age-related osteoporosis without current pathological fracture (principal)

== ENCOUNTER → 2018-09-30 | Outpatient (CLI) | payer OTHER | LOC: M.RAD 15:32 | DX: Z12.31 Encounter for screening mammogram for malignant neoplasm of breast (principal) ==

== ENCOUNTER → 2019-01-01 | Outpatient (CLI) | payer OTHER ==
[~2019-01-01] MED LIST changes: +PRAVACHOL20 MG PO
== END ==
LOC: M.RAD 14:04
DX: M17.12 Unilateral primary osteoarthritis, left knee (principal); M19.071 Primary osteoarthritis, right ankle and foot; M25.561 Pain in right knee; M25.461 Effusion, right knee; E03.9 Hypothyroidism, unspecified

== ENCOUNTER 2019-01-31 03:56 | Emergency (ER) | payer OTHER, MEDICAID ==
[~2019-01-31] VITALS: Ht 170.2 cm; Wt 190.5 kg
[2019-01-31 04:00] VITALS: BP 158/50
[2019-02-08] MEDS ORDERED: ALEVE220 M1 PO (08:40)
[2019-02-08] MEDS ORDERED: RELISTOR SUBQ (11:57)
== END 2019-01-31 04:30 | disposition home or self-care (01) ==
LOC: M.ERS 03:56
DX: Z47.89 Encounter for other orthopedic aftercare (principal); M06.9 Rheumatoid arthritis, unspecified; E11.9 Type 2 diabetes mellitus without complications; E03.9 Hypothyroidism, unspecified; F32.9 Major depressive disorder, single episode, unspecified; I10 Essential (primary) hypertension; J44.9 Chronic obstructive pulmonary disease, unspecified; Z91.030 Bee allergy status; G89.29 Other chronic pain; E66.01 Morbid (severe) obesity due to excess calories; Z68.44 Body mass index [BMI] 60.0-69.9, adult; Z87.442 Personal history of urinary calculi

== ENCOUNTER → 2019-02-08 | Day surgery (SDC) | payer OTHER, MEDICAID ==
[~2019-02-08] MED LIST changes: +ALEVE220 M1 PO; +RELISTOR SUBQ
--- NOTE | ~2019-02-08 | PROC ---
[address] [address] PROCEDURE REPORT Name: DILIP WALKER Room: [facility].#: [id number] Admission: 02/08/19 Attend Phys: Paul Catalan DO Discharge: Date of : 67 Report #: [id number] THIS REPORT FOR: //name// For GI report, please see the Provation report in Perceptive 7 content. By: 1442Medical Records Staff [facility] /ANGELI
[2019-02-08 09:25] LABS: CREATININE 1.1 mg/dL (0.6-1.3); POTASSIUM 3.4 mmol/L (3.5-5.1)
[2019-02-08 09:29] LABS: ALBUMIN 3.8 g/dL (3.4-5.0); TOTAL BILIRUBIN 0.5 mg/dL (<0.1-1.0); TOTAL PROTEIN 7.7 g/dL (6.4-8.2)
--- NOTE | 2019-02-08 13:18 | EKG ---
[place] [address] ELECTROCARDIOGRAM REPORT Name: DILIP WALKER Room: [facility]#: [id number] Admission: 02/08/19 Attend Phys: Paul Catalan DO Discharge: Date of : 67 Report #: [id number] THIS REPORT FOR: //name// [facility] Test Date: 2019-02-08 Test Time: 09:14:02 Pat Name: DILIP WALKER Department: Room: Gender: F Television News Reporter: LATISHA : 1965 Requested By: Paul Catalan Order Number: [id number] MD: Griffin Caba Measurements Intervals [place] Rate: 73 P: 0 NV: 162 QRS: -18 QRSD: 103 T: 32 QT: 415 QTc: 458 Interpretive Statements Sinus rhythm Borderline left axis deviation Low voltage, precordial leads Baseline wander in lead(s) V2 Compared to ECG 07/28/2017 09:12:33 Low QRS voltage now present pvc's no longer present Electronically Signed On 02-08-2019 13:18:15 MAINTENANCE PAINTER by Griffin Caba [email or web address] <ELECTRONICALLY SIGNED> By: Griffin Caba MD, FACC 02/08/19 1318 Griffin Caba MD, [facility] /EPI
== END | disposition home or self-care (01) ==
LOC: M.SUR 04:04
PROVIDERS: Internal Medicine Gastroenterology
DX: Z12.11 Encounter for screening for malignant neoplasm of colon (principal); K64.4 Residual hemorrhoidal skin tags; K44.9 Diaphragmatic hernia without obstruction or gangrene; R13.14 Dysphagia, pharyngoesophageal phase; E11.22 Type 2 diabetes mellitus with diabetic chronic kidney disease; N18.3 Chronic kidney disease, stage 3 (moderate); I50.9 Heart failure, unspecified; E03.9 Hypothyroidism, unspecified; J44.9 Chronic obstructive pulmonary disease, unspecified; F32.9 Major depressive disorder, single episode, unspecified; M06.9 Rheumatoid arthritis, unspecified; E66.01 Morbid (severe) obesity due to excess calories; D64.9 Anemia, unspecified; K21.9 Gastro-esophageal reflux disease without esophagitis; Z87.19 Personal history of other diseases of the digestive system; Z68.44 Body mass index [BMI] 60.0-69.9, adult; Z98.890 Other specified postprocedural states; Z79.899 Other long term (current) drug therapy
CPT/HCPCS: 43235; 43450; G0121

== ENCOUNTER → 2019-08-31 | Outpatient (CLI) | payer OTHER, MEDICAID | LOC: M.RAD 14:26 | PROVIDERS: ATTEND Internal Medicine | DX: Z12.31 Encounter for screening mammogram for malignant neoplasm of breast (principal) ==

== ENCOUNTER → 2019-09-20 | Outpatient (CLI) | payer OTHER, MEDICAID | LOC: M.RAD 11:00 | PROVIDERS: ATTEND Specialist | DX: R13.10 Dysphagia, unspecified (principal) ==

== ENCOUNTER 2019-10-12 15:29 | Observation (INO) | payer OTHER, MEDICAID ==
[~2019-10-12] VITALS: Ht 170.2 cm; Wt 199.6 kg
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
[~2019-10-12 15:29] MED LIST changes: -AMILORIDE HCL-1 EACH PO; -KEFLEX500 M1 PO; -TRESIBA FL100 UNIT/1 SUBQ; -VICTOZA 3-0.6 MG/0.1 SUBQ
[2019-10-12] MEDS ORDERED: TRESIBA FL100 UNIT/1 SUBQ (15:40)
[2019-10-12] MEDS ORDERED: AMILORIDE HCL-1 EACH PO (15:41)
[2019-10-12] MEDS ORDERED: VICTOZA 3-0.6 MG/0.1 SUBQ (15:41)
[2019-10-12 15:43] VITALS: BP 144/80
[2019-10-12 16:50] LABS: ABSOLUTE BASOPHILS 0.1 thou/uL (0.0-0.2); ABSOLUTE EOSINOPHILS 0.2 thou/uL (0.0-0.7); ABSOLUTE LYMPHOCYTES 1.1 thou/uL (0.8-5.3); ABSOLUTE MONOCYTES 0.6 thou/uL (0.0-1.2); ABSOLUTE NEUTROPHILS 7.9 thou/uL (1.6-8.1); BASOPHILS 0.9 %; EOSINOPHILS 1.8 %; HEMATOCRIT 38.2 % (37.0-47.0); HEMOGLOBIN 12.8 gm/dL (12.0-15.0); LYMPHOCYTES 11.2 %; MCH 31.4 pg (26.0-34.0); MCHC 33.4 g/dL (28.0-37.0); MCV 94.2 fL (80.0-100.0); MONOCYTES 5.8 %; MPV 6.5 fl. (7.2-11.1); NUCLEATED RBCS 0 /100WBC; PLATELET COUNT* 268 thou/uL (150-400); POLYS 80.3 %; RBC 4.06 mil/uL (4.20-5.00); RDW-CV 15.9 % (10.5-14.5); WBC 9.8 thou/uL (4.0-11.0)
[2019-10-12 16:58] LABS: CALCIUM 8.9 mg/dL (8.5-10.1); CREATININE 1.3 mg/dL (0.6-1.3); POTASSIUM 3.7 mmol/L (3.5-5.1)
[2019-10-12 17:03] LABS: ALBUMIN 3.7 g/dL (3.4-5.0); TOTAL BILIRUBIN 0.4 mg/dL (<0.1-1.0); TOTAL PROTEIN 7.8 g/dL (6.4-8.2)
[2019-10-12 22:00] VITALS: BP 149/62
[2019-10-12 22:15] VITALS: BP 186/71
[2019-10-13] VITALS: BP 154/74
[2019-10-13 00:34] LABS: HEMATOCRIT 37.8 % (37.0-47.0); HEMOGLOBIN 12.3 gm/dL (12.0-15.0); MCH 30.8 pg (26.0-34.0); MCHC 32.6 g/dL (28.0-37.0); MCV 94.6 fL (80.0-100.0); MPV 6.6 fl. (7.2-11.1); RBC 3.99 mil/uL (4.20-5.00); RDW-CV 15.5 % (10.5-14.5); WBC 9.3 thou/uL (4.0-11.0)
[2019-10-13 00:45] LABS: CALCIUM 8.4 mg/dL (8.5-10.1); CREATININE 1.4 mg/dL (0.6-1.3); POTASSIUM 3.6 mmol/L (3.5-5.1)
[2019-10-13 00:48] LABS: APTT 26.1 Seconds (25.0-31.3); PROTIME 10.7 Seconds (9.20-11.50)
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
[2019-10-13 07:35] VITALS: BP 123/73
[2019-10-13] MEDS ORDERED: KEFLEX500 M1 PO ×2 (09:20)
[2019-10-13 12:00] VITALS: BP 153/79
[2019-10-13 12:38] VITALS: BP 154/74
[2019-10-13 15:20] VITALS: BP 154/74
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
--- NOTE | 2019-10-13 16:05 | NUR ---
PT A&OX4 VSS. PT IN SX AT TIME OF SHIFT CHANGE THIS AM. 3RD TOE OF L FOOT AMPUTATED THIS ADMISSION. PT UP AD CARLOS PRIOR TO PROCEDURE. WALKING/SX SHOE PROVIDED FOR L FOOT, ORTHOTIC FROM HOME FOR R FOOT. PT CPAP AT HS FROM HOME. PT ON ROOM AIR WHILE AWAKE. IV TO RAC DC'D PRIOR TO PT LEAVING UNIT. NO SWELLING/REDNESS NOTED AT SITE. PT HOME MEDICATIONS SENT HOME W/PT AND SPOUSE. PT DC TO HOME W/HH. PT AND SPOUSE STATE UNDERSTANDING OF DC INSTRUCTIONS AND INFORMATION PROVIDED. PT LEAVES W/PERSONAL BELONGINGS. PT TRANSPORTED TO VEHICLE BY WITH NURSING STAFF.
[2019-10-14 02:06] LABS: GLYCOHEMOGLOBIN (HGB A1C) 6.9 % (4.8-5.6)
== END 2019-10-13 16:00 | disposition home health service (06) ==
LOC: M.ERS 15:29 → M.ORTHSURG 17:06 → M.TBA-ER 17:06 → M.ERS 22:00 → M.ORTHSURG 23:29
PROVIDERS: Personal Emergency Response Attendant; ADMIT Internal Medicine; ATTEND Internal Medicine
DX: Z03.818 Encounter for observation for suspected exposure to other biological agents ruled out (principal); T25.332A Burn of third degree of left toe(s) (nail), initial encounter; E11.40 Type 2 diabetes mellitus with diabetic neuropathy, unspecified; E11.22 Type 2 diabetes mellitus with diabetic chronic kidney disease; N18.3 Chronic kidney disease, stage 3 (moderate); E66.01 Morbid (severe) obesity due to excess calories; G47.33 Obstructive sleep apnea (adult) (pediatric); M06.9 Rheumatoid arthritis, unspecified; F11.20 Opioid dependence, uncomplicated; G89.29 Other chronic pain; F32.9 Major depressive disorder, single episode, unspecified; E03.9 Hypothyroidism, unspecified; Z79.4 Long term (current) use of insulin; Z79.899 Other long term (current) drug therapy; X58.XXXA Exposure to other specified factors, initial encounter

== ENCOUNTER → 2019-10-12 | Outpatient (CLI) | payer OTHER, MEDICAID ==
[~2019-10-12] MED LIST changes: +AMILORIDE HCL-1 EACH PO; +KEFLEX500 M1 PO; +TRESIBA FL100 UNIT/1 SUBQ; +VICTOZA 3-0.6 MG/0.1 SUBQ
== END ==
LOC: M.RAD 14:00
PROVIDERS: ATTEND Specialist
DX: K21.9 Gastro-esophageal reflux disease without esophagitis (principal)

== ENCOUNTER → 2020-09-27 | Outpatient (CLI) | payer OTHER, MEDICAID ==
[~2020-09-27] MED LIST changes: +AMILORIDE HCL-1 EACH PO; +KEFLEX500 M1 PO; +TRESIBA FL100 UNIT/1 SUBQ; +VICTOZA 3-0.6 MG/0.1 SUBQ
== END ==
LOC: M.RAD 11:25
PROVIDERS: ATTEND Internal Medicine
DX: Z12.31 Encounter for screening mammogram for malignant neoplasm of breast (principal)

== ENCOUNTER 2021-01-07 17:19 | Emergency (ER) | payer OTHER, MEDICAID ==
[~2021-01-07] VITALS: Ht 170.2 cm; Wt 156.0 kg
[~2021-01-07 17:19] MED LIST changes: +CRANBERRY500 M3 PO; -CRANBERRY500 MG PO
[2021-01-07] MEDS ORDERED: LIDOCAINE 2%2 %/5 GM TOP (17:54)
[2021-01-07] MEDS ORDERED: REGLAN 5 MG TAB5 MG PO (17:57)
[2021-01-07] MEDS ORDERED: NABUMETONE 750750 M1 PO (17:58)
[2021-01-07] MEDS ORDERED: NARCAN (17:59)
[2021-01-07] MEDS ORDERED: NOVOLOG FL100 UNIT/M SUBQ (18:01)
[2021-01-07] MEDS ORDERED: FOLATE PO (18:04)
[2021-01-07 18:06] LABS: ABSOLUTE BASOPHILS 0.1 thou/uL (0.0-0.2); ABSOLUTE LYMPHOCYTES 0.6 thou/uL (0.8-5.3); ABSOLUTE MONOCYTES 1.1 thou/uL (0.0-1.2); BASOPHILS 0.5 %; EOSINOPHILS 0.2 %; HEMATOCRIT 36.3 % (37.0-47.0); HEMOGLOBIN 12.4 gm/dL (12.0-15.0); LYMPHOCYTES 5.8 %; MCH 31.4 pg (26.0-34.0); MCHC 34.2 g/dL (28.0-37.0); MCV 91.7 fL (80.0-100.0); MONOCYTES 10.2 %; MPV 7.6 fl. (7.2-11.1); NUCLEATED RBCS 0 /100WBC; PLATELET COUNT* 183 thou/uL (150-400); POLYS 83.3 %; RBC 3.96 mil/uL (4.20-5.00); RDW-CV 15.5 % (10.5-14.5); WBC 10.8 thou/uL (4.0-11.0)
[2021-01-07] MEDS ORDERED: CALCIUM CARBON600 MG PO (18:06)
[2021-01-07] MEDS ORDERED: XANAX 0.25 MG0.25 MG PO (18:07)
[2021-01-07] MEDS ORDERED: ACTEMRA AC162 MG/0.9 IM (18:07)
[2021-01-07 18:16] LABS: CALCIUM 8.8 mg/dL (8.5-10.1); CREATININE 2.6 mg/dL (0.6-1.3); POTASSIUM 3.2 mmol/L (3.5-5.1)
[2021-01-07] MEDS ORDERED: FOSAMAX 70 MG T70 MG PO (18:17)
[2021-01-07] MEDS ORDERED: VITAMIN D PO (18:19)
[2021-01-07 18:21] LABS: ALBUMIN 3.2 g/dL (3.4-5.0); TOTAL PROTEIN 7.3 g/dL (6.4-8.2)
[2021-01-07 19:33] VITALS: BP 96/50
--- NOTE | 2021-01-08 08:38 | EKG ---
[place] [address] ELECTROCARDIOGRAM REPORT Name: DILIP WALKER Room: [facility]#: [id number] Admission: 01/07/21 Attend Phys: Discharge: 01/07/21 Date of : 67 Date of Service: 01/07/21 1754 Report #: [id number] THIS REPORT FOR: //name// [facility] ED Test Date: 2021-01-07 Test Time: 17:54:50 Pat Name: DILIP WALKER Department: Room: Gender: F Chrome Worker: NATALIA : 1965 Requested By: Leesa Smiley Order Number: [id number] MD: Griffin Caba Measurements Intervals [place] Rate: 86 P: -15 AK: 182 QRS: -16 QRSD: 104 T: 35 QT: 374 QTc: 448 Interpretive Statements Sinus rhythm Borderline left axis deviation Consider anterior infarct Baseline wander in lead(s) V1 Compared to ECG 02/08/2019 09:14:02 no change Electronically Signed On 01-08-2021 8:38:37 CDT by Griffin Caba [email or web address] <ELECTRONICALLY SIGNED> By: Griffin Caba MD, FACC 01/08/21 0838 1754 1754 Griffin Caba MD, [facility] /EPI
== END 2021-01-07 19:34 | disposition home or self-care (01) ==
LOC: M.ERS 17:19
PROVIDERS: Physician Assistant
DX: N17.9 Acute kidney failure, unspecified (principal); Z20.822 Contact with and (suspected) exposure to COVID-19; I95.9 Hypotension, unspecified; H54.7 Unspecified visual loss; E11.9 Type 2 diabetes mellitus without complications; J44.9 Chronic obstructive pulmonary disease, unspecified; E03.9 Hypothyroidism, unspecified; F32.9 Major depressive disorder, single episode, unspecified; I10 Essential (primary) hypertension; E66.01 Morbid (severe) obesity due to excess calories; E11.40 Type 2 diabetes mellitus with diabetic neuropathy, unspecified; M06.9 Rheumatoid arthritis, unspecified; M19.90 Unspecified osteoarthritis, unspecified site; Z68.43 Body mass index [BMI] 50.0-59.9, adult; Z89.422 Acquired absence of other left toe(s); Z79.899 Other long term (current) drug therapy; Z79.4 Long term (current) use of insulin; Z91.030 Bee allergy status; Z91.048 Other nonmedicinal substance allergy status